=== PATIENT | male | born 1945 | race Caucasian/White ===

== ENCOUNTER 2020-01-11 12:54 | Outpatient (REF) | payer MEDICARE, BC, SELFPAY | END 2020-01-11 12:55 | disposition home or self-care (01) | LOC: HO.BBR 12:54 | PROVIDERS: PCP Internal Medicine; Visit Provider Family Medicine | DX: E83.110 Hereditary hemochromatosis (principal) | CPT/HCPCS: 99195 ==

== ENCOUNTER 2020-02-10 12:50 | Outpatient (REF) | payer MEDICARE, BC, SELFPAY | END 2020-02-10 12:51 | disposition home or self-care (01) | LOC: HO.BBR 12:50 | PROVIDERS: PCP Internal Medicine; Visit Provider Internal Medicine Hematology & Oncology | DX: Z13.89 Encounter for screening for other disorder (principal) ==

== ENCOUNTER 2020-03-14 12:57 | Outpatient (REF) | payer MEDICARE, BC, SELFPAY | END 2020-03-14 12:58 | disposition home or self-care (01) | LOC: HO.BBR 12:57 | PROVIDERS: Visit Provider Internal Medicine Hematology & Oncology | DX: Z13.89 Encounter for screening for other disorder (principal) ==

== ENCOUNTER 2020-04-21 15:29 | Outpatient (REF) | payer MEDICARE, BC, SELFPAY | END 2020-04-21 15:30 | disposition home or self-care (01) | LOC: HO.BBR 15:29 | PROVIDERS: Visit Provider Internal Medicine Hematology & Oncology | DX: Z13.89 Encounter for screening for other disorder (principal) ==

== ENCOUNTER 2020-05-18 13:04 | Outpatient (REF) | payer MEDICARE, BC, SELFPAY | END 2020-05-18 13:05 | disposition home or self-care (01) | LOC: HO.BBR 13:04 | PROVIDERS: Visit Provider Internal Medicine Hematology & Oncology | DX: Z13.89 Encounter for screening for other disorder (principal) ==

== ENCOUNTER 2020-06-29 12:00 | Outpatient (REF) | payer MEDICARE, BC, SELFPAY | END 2020-06-29 12:01 | disposition home or self-care (01) | LOC: HO.BBR 12:00 | PROVIDERS: Visit Provider Internal Medicine Hematology & Oncology | DX: Z13.89 Encounter for screening for other disorder (principal) ==

== ENCOUNTER 2020-07-11 12:47 | Outpatient (REF) | payer MEDICARE, BC, SELFPAY | END 2020-07-11 12:48 | disposition home or self-care (01) | LOC: HO.BBR 12:47 | PROVIDERS: Visit Provider Internal Medicine Hematology & Oncology | DX: Z13.89 Encounter for screening for other disorder (principal) ==

== ENCOUNTER 2020-07-13 09:30 | Outpatient (REF) | payer MEDICARE, BC, SELFPAY | END 2020-07-13 09:31 | disposition home or self-care (01) | LOC: HO.BBR 09:30 | PROVIDERS: Visit Provider Internal Medicine Hematology & Oncology | DX: Z13.89 Encounter for screening for other disorder (principal) ==

== ENCOUNTER 2020-07-19 12:40 | Outpatient (REF) | payer MEDICARE, BC, SELFPAY | END 2020-07-19 12:41 | disposition home or self-care (01) | LOC: HO.BBR 12:40 | PROVIDERS: Visit Provider Internal Medicine Hematology & Oncology | DX: Z13.89 Encounter for screening for other disorder (principal) ==

== ENCOUNTER 2020-07-21 12:42 | Outpatient (REF) | payer MEDICARE, BC, SELFPAY | END 2020-07-21 12:43 | disposition home or self-care (01) | LOC: HO.BBR 12:42 | PROVIDERS: Visit Provider Internal Medicine Hematology & Oncology | DX: Z13.89 Encounter for screening for other disorder (principal) ==

== ENCOUNTER 2020-08-01 13:21 | Outpatient (REF) | payer MEDICARE, BC, SELFPAY | END 2020-08-01 13:22 | disposition home or self-care (01) | LOC: HO.BBR 13:21 | PROVIDERS: Visit Provider Internal Medicine Hematology & Oncology | DX: Z13.89 Encounter for screening for other disorder (principal) ==

== ENCOUNTER 2020-08-15 13:10 | Outpatient (REF) | payer MEDICARE, BC, SELFPAY | END 2020-08-15 13:11 | disposition home or self-care (01) | LOC: HO.BBR 13:10 | PROVIDERS: Visit Provider Internal Medicine Hematology & Oncology | DX: Z13.89 Encounter for screening for other disorder (principal) ==

== ENCOUNTER 2020-08-29 12:58 | Outpatient (REF) | payer MEDICARE, BC, SELFPAY | END 2020-08-29 12:59 | disposition home or self-care (01) | LOC: HO.BBR 12:58 | PROVIDERS: Visit Provider Internal Medicine Hematology & Oncology | DX: Z13.89 Encounter for screening for other disorder (principal) ==

== ENCOUNTER 2020-09-13 12:10 | Outpatient (REF) | payer MEDICARE, BC, SELFPAY | END 2020-09-13 12:11 | disposition home or self-care (01) | LOC: HO.BBR 12:10 | PROVIDERS: Visit Provider Internal Medicine Hematology & Oncology | DX: Z13.89 Encounter for screening for other disorder (principal) ==

== ENCOUNTER 2020-12-21 12:09 | Outpatient (REF) | payer MEDICARE, BC, SELFPAY ==
[2020-12-21 12:27] LABS: MANUAL DIFF FLAG NO
[2020-12-21 12:28] LABS: Basophils Percent Auto 0.6 % (0-2); Eosinophils Absolute Auto 0.1 X10*3/uL (0.0-0.4); Eosinophils Percent Auto 2.5 % (0-4); Hematocrit 44.3 % (42-52); Hemoglobin 15.6 g/dl (14.0-18.0); Imm Gran Abs Auto 0.01 X10*3/uL (0.00-0.03); Imm Gran Pct Auto 0.2 % (0.0-0.4); Lymphocytes Percent Auto 21.6 % (20-40); Mean Corpuscular HGB Conc 35.2 g/dl (31.0-36.0); Mean Corpuscular Hemoglobin 33.1 pg (27.0-33.0); Mean Corpuscular Volume 93.9 fL (80-98); Mean Platelet Volume 9.3 fL (9.4-12.4); Monocytes Absolute Auto 0.5 X10*3/uL (0.1-1.2); Monocytes Percent Auto 10.3 % (2-11); Neutrophils Absolute Auto 3.1 X10*3/uL (2.0-8.3); Neutrophils Percent Auto 64.8 % (45-73); Platelet Count 147 X10*3/uL (160-400); Red Blood Count 4.72 X10*6/uL (4.60-5.80); Red Cell Distribution Width 12.4 % (11.0-16.0); White Blood Count 4.8 X10*3/uL (4.8-10.8)
[2020-12-21 13:10] LABS: Ferritin 243 ng/mL (20-250)
== END 2020-12-21 12:10 | disposition home or self-care (01) ==
LOC: HO.BBR 12:09
PROVIDERS: PCP Internal Medicine; Visit Provider Internal Medicine Hematology & Oncology
DX: E83.110 Hereditary hemochromatosis (principal)
CPT/HCPCS: 36415; 82728; 85025

== ENCOUNTER 2021-01-23 11:52 | Outpatient (REF) | payer MEDICARE, BC, SELFPAY | END 2021-01-23 11:53 | disposition home or self-care (01) | LOC: HO.BBR 11:52 | PROVIDERS: Visit Provider Internal Medicine Hematology & Oncology | DX: Z13.89 Encounter for screening for other disorder (principal) ==

== ENCOUNTER 2021-02-20 13:17 | Outpatient (REF) | payer MEDICARE, BC, SELFPAY | END 2021-02-20 13:18 | disposition home or self-care (01) | LOC: HO.BBR 13:17 | PROVIDERS: Visit Provider Internal Medicine Hematology & Oncology | DX: Z13.89 Encounter for screening for other disorder (principal) ==

== ENCOUNTER 2021-03-22 13:14 | Outpatient (REF) | payer MEDICARE, BC, SELFPAY | END 2021-03-22 13:15 | disposition home or self-care (01) | LOC: HO.BBR 13:14 | PROVIDERS: Visit Provider Internal Medicine Hematology & Oncology | DX: Z13.89 Encounter for screening for other disorder (principal) ==

== ENCOUNTER 2021-04-17 12:09 | Outpatient (REF) | payer MEDICARE, BC, SELFPAY | END 2021-04-17 12:10 | disposition home or self-care (01) | LOC: HO.BBR 12:09 | PROVIDERS: Visit Provider Internal Medicine Hematology & Oncology | DX: Z13.89 Encounter for screening for other disorder (principal) ==

== ENCOUNTER 2021-05-18 11:52 | Outpatient (REF) | payer MEDICARE, BC, SELFPAY | END 2021-05-18 11:53 | disposition home or self-care (01) | LOC: HO.BBR 11:52 | PROVIDERS: Visit Provider Internal Medicine Hematology & Oncology | DX: Z13.89 Encounter for screening for other disorder (principal) ==

== ENCOUNTER 2021-06-15 11:56 | Outpatient (REF) | payer MEDICARE, BC, SELFPAY | END 2021-06-15 11:57 | disposition home or self-care (01) | LOC: HO.BBR 11:56 | PROVIDERS: Visit Provider Internal Medicine Hematology & Oncology | DX: Z13.89 Encounter for screening for other disorder (principal) ==

== ENCOUNTER 2021-07-17 12:06 | Outpatient (REF) | payer MEDICARE, BC, SELFPAY | END 2021-07-17 12:07 | disposition home or self-care (01) | LOC: HO.BBR 12:06 | PROVIDERS: Visit Provider Internal Medicine Hematology & Oncology | DX: Z13.89 Encounter for screening for other disorder (principal) ==

== ENCOUNTER 2021-10-10 13:01 | Outpatient (REF) | payer MEDICARE, BC, SELFPAY | END 2021-10-10 13:02 | disposition home or self-care (01) | LOC: HO.BBR 13:01 | PROVIDERS: Visit Provider Internal Medicine Hematology & Oncology | DX: D75.1 Secondary polycythemia (principal) | CPT/HCPCS: 85018; 99195 ==

== ENCOUNTER 2022-01-10 13:06 | Outpatient (REF) | payer MEDICARE, BC, SELFPAY | END 2022-01-10 13:07 | disposition home or self-care (01) | LOC: HO.BBR 13:06 | PROVIDERS: Visit Provider Internal Medicine Hematology | DX: D75.1 Secondary polycythemia (principal) | CPT/HCPCS: 85018; 99195 ==

== ENCOUNTER 2022-04-12 13:03 | Outpatient (REF) | payer MEDICARE, BC, SELFPAY | END 2022-04-12 13:04 | disposition home or self-care (01) | LOC: HO.BBR 13:03 | PROVIDERS: Visit Provider Internal Medicine Hematology | DX: D75.1 Secondary polycythemia (principal) | CPT/HCPCS: 85014; 85018; 99195 ==

== ENCOUNTER 2022-07-10 14:21 | Outpatient (REF) | payer MEDICARE, BC, SELFPAY | END 2022-07-10 14:22 | disposition home or self-care (01) | LOC: HO.BBR 14:21 | PROVIDERS: Visit Provider Internal Medicine Hematology | DX: D75.1 Secondary polycythemia (principal) | CPT/HCPCS: 85018; 99195 ==